=== PATIENT | male | born 1985 | race Caucasian/White ===

== ENCOUNTER 2023-10-30 03:55 | Inpatient (IN) | payer BC, SELFPAY ==
[2023-10-30] VITALS (23 sets, daily range): BP systolic 98–138; BP diastolic 63–104; PULSE 77–106; RESP 12–20; TEMP 36.5–37.3; O2SAT 91–100; BMI 23.6; BMI 23.3
--- NOTE | 2023-10-30 04:09 | HMH.EDGENADL ---
Discharge Plan Disposition Patient Disposition: Admitted Condition: Fair Clinical Impressions Clinical Impression: Myocarditis Discharge ED Provider: Jose Jose General Adult HPI General Chief complaint: Headache Stated complaint: heart racing, headache, sore throat Time Seen by Provider: 10/30/23 04:00 History of Present Illness HPI narrative: 38-year-old male with no significant past medical history is coming into the ED with complaints of viral symptoms. Patient has had for the past 2 days, he has been having progressively worsening body aches, headaches, sore throat, cough, congestion, fatigue. Patient notes that over the past 24 hours, he started feeling nauseous, decreased p.o. intake, started feel dehydrated. Patient notes that tonight, he started experiencing some flutters in his chest and mild chest pain and thus he decided come into the ED for evaluation. Related Data Home Medications Medication Instructions Recorded Confirmed aspirin 81 mg tablet 81 mg PO DAILY 10/30/23 10/30/23 cyclobenzaprine 10 mg tablet 10 mg PO Q8H PRN Pain 10/30/23 10/30/23 meloxicam 15 mg tablet 15 mg PO DAILY 10/30/23 10/30/23 Allergies Allergy/AdvReac Type Severity Reaction Status Date / Time No Known Allergies Allergy Verified 10/30/23 04:13 [facility] Disclaimer: The information contained in this section may have been updated after the patient was seen, as this information can be updated by other users. Medical History (Updated 10/30/23 @ 06:12 by Jose Jose MD) Chronic back pain Low testosterone in male Social History (Updated 10/30/23 @ 06:09 by LARISA Bird) Smoking Status: Never smoker alcohol intake: never current occupational status: employed Travel in the last 8 weeks: Inside the [employer] ROS Obtained: Yes All systems reviewed & no additional complaints except as documented Physical Exam General General appearance: alert and in no apparent distress Head Head exam: atraumatic, normocephalic and normal inspection Eye Eye exam: Present normal appearance, PERRL and EOMI; Absent scleral icterus or nystagmus ENT ENT exam: Present normal exam, mucous membranes moist and normal external ear exam Neck Neck exam: Present normal inspection, full ROM and trachea midline Chest Chest inspection: Present normal inspection and symmetric chest wall rise; Absent tenderness Respiratory Respiratory exam: Present normal lung sounds bilaterally; Absent respiratory distress, wheezes or accessory muscle use Cardiovascular Cardiovascular exam: Present regular rate, normal rhythm and normal heart sounds Abdominal Exam Abdominal exam: Present soft; Absent distention, tenderness, guarding, rebound, rigidity, trauma, ascites or pulsatile mass exam: Present deferred Extremities Exam Extremities exam: Present normal inspection and full ROM; Absent tenderness Back Exam Back exam: Present normal inspection and full ROM; Absent tenderness Neurological Exam Neurological exam: Present alert, oriented X3 and normal gait; Absent motor sensory deficit Psychiatric Psychiatric exam: Present normal affect and normal mood Skin Skin exam: Present warm, dry and normal color Medical Decision Making Medical Records Medical records reviewed: Yes I reviewed the patient's medical records. Alvaro Inquiry Pt receiving controlled substance: No Vital Signs: 10/30/23 03:56 10/30/23 04:30 10/30/23 05:00 Temperature 97.7 F Temperature Source Oral Pulse Rate 97 H 98 H Pulse Rate [Left Radial] 106 H Respiratory Rate 18 16 18 Blood Pressure 130/96 H 138/104 H Blood Pressure [Right Arm] 136/98 H Blood Pressure Mean 103 112 Blood Pressure Mean [Right Arm] 110 Blood Pressure Source Blood Pressure Source [Right Arm] Automatic Cuff Blood Pressure Position Blood Pressure Position [Right Arm] Sitting 02 Sat by Pulse Oximetry 98 98 98 Oxygen Delivery Method Room Air
--- NOTE | 2023-10-30 04:23 | ECG_ITS ---
APPROVED REPORT Exam: Resting ECG HR:89 bpm ECG Measurements Heart Rate 89 AXES [place] 136 P 61 QRSd 86 QRS 78 QT 325 T 37 QTc 372 Conclusion SINUS RHYTHM WITH SINUS ARRHYTHMIA EARLY REPOLARIZATION [ST ELEVATION WITH NORMALLY INFLECTED T-WAVE] BORDERLINE ECG INTERPRETATION BASED ON A DEFAULT AGE OF 38 YEARS UNCONFIRMED REPORT Electronically signed by : Tomas Simons MD 10/30/2023 14:43:26
[2023-10-30 04:30] LABS: Basophils # 0.1 K/mm3 (0-0.2); Basophils % 0.6 % (0.1-2.0); Eosinophils # 0.1 K/mm3 (0.0-0.4); Eosinophils % 0.8 % (0.1-12.0); Hematocrit 49.2 % (42.0-52.0); Hemoglobin 16.8 g/dL (14.1-18.0); Lymphocytes # 1.4 K/mm3 (0.7-4.5); Lymphocytes % 11.3 % (10-50); Mean Corpuscular HGB Conc 34.2 g/dL (31.8-35.4); Mean Corpuscular Volume 87.8 fl (80-94); Mean Platelet Volume 7.3 fl (7.4-10.4); Monocytes # 0.8 K/mm3 (0.1-1.0); Monocytes % 6.7 % (1.7-9.3); Neutrophils % 80.6 % (37.0-80.0); Platelet Count 277 K/mm3 (142-424); Red Cell Distribution Width 13.6 % (11.5-17.5); White Blood Count 12.5 K/mm3 (4.8-10.8)
[2023-10-30 04:32] LABS: Coronavirus 19, PCR Not Detected (NotDetected); Influenza A, PCR Not Detected (NotDetected); Influenza B, PCR Not Detected (NotDetected)
[2023-10-30 04:32] LABS: Chloride 99 mmol/L (98-107)
[2023-10-30 04:33] LABS: Potassium 4.2 mmoL/L (3.5-5.1)
[2023-10-30 04:35] LABS: Alanine Aminotransferase 50 U/L (12-78); Aspartate Amino Transferase 67 U/L (17-59); Blood Urea Nitrogen 25 mg/dl (9-20); Creatinine Clearance Estimated 84 mL/min (50-200); Estimated Glomerular Filt Rate 67 ml/min (>60); GFR (African American) 81 ML/MIN (>60)
[2023-10-30 04:36] LABS: Albumin Level 4.7 g/dl (3.5-5.0); Alkaline Phosphatase 87 U/L (38-126); Bilirubin,Total 0.8 mg/dl (0.2-1.3); Calcium 8.8 mg/dl (8.4-10.2); Carbon Dioxide 25 mmol/L (22.0-30.0); Glucose 107 mg/dl (74-100); Total Protein,Serum 7.9 g/dl (6.3-8.2)
[2023-10-30 04:39] LABS: Strep Scrn Group A (Rapid) Negative (Negative)
--- NOTE | 2023-10-30 05:01 | PC.NURSE ---
no on-call ent after [address] whitt states she doesn't feel comfortable taking a patient that there won't be ent coverage over the weekend for. oscar from [facility] states that on this basis, the local [facility]: mario nunez clark.
[2023-10-30 05:04] LABS: Troponin I 4.06 ng/ml (0.00-0.034)
--- NOTE | 2023-10-30 05:07 | ECG_ITS ---
APPROVED REPORT Exam: Resting ECG HR:86 bpm ECG Measurements Heart Rate 86 AXES [place] 142 P 66 QRSd 88 QRS 82 QT 335 T 42 QTc [address] ELEVATION, PROBABLY EARLY REPOLARIZATION [ST ELEVATION WITH NORMALLY INFLECTED T-WAVE] BORDERLINE ECG UNCONFIRMED REPORT Electronically signed by : Tomas Simons MD 10/30/2023 14:43:19
--- NOTE | 2023-10-30 05:08 | CT_ITS ---
FINAL REPORT TECHNIQUE: Postcontrast axial images of the chest were performed in a CTA protocol. This study was performed with techniques to keep radiation doses as low as reasonably achievable, (ALARA). Individualized dose reduction technique using automated exposure control or adjustment of mA and/or kV according to the patient's size were employed. CLINICAL HISTORY: incr trop FINDINGS: Soft tissue is seen in the anterior mediastinum likely related to residual thymic tissue. The heart is normal in size. No adenopathy is identified. No pleural or pericardial effusion is identified. The thoracic aorta is normal in caliber with no focal aneurysm or dissection identified. There is no filling defect to suggest pulmonary embolism. There is a nodule at the left lung base measuring 1.4 cm in diameter with central calcification likely due to partially calcified granuloma. Otherwise, no lung infiltrate or mass is identified. The images of the upper abdomen are unremarkable. IMPRESSION: No evidence for PE on this exam. Reviewed, Interpreted and Dictated by Jose Cabrera MD Transcribed by Hellen Daugherty Authenticated and [facility]
--- NOTE | 2023-10-30 05:14 | PC.NURSE ---
patient gone to CT at this time.
--- NOTE | 2023-10-30 05:18 | PC.NURSE ---
paged dr roberts, sent a copy of 2nd ekg via md phone to him
[2023-10-30 05:23] LABS: Creatine Kinase 283 U/L (55-170)
--- NOTE | 2023-10-30 05:26 | PC.NURSE ---
patient back in room at this time.
[2023-10-30 05:29] LABS: C-Reactive Protein 111.2 mg/L (0-4)
[2023-10-30 05:35] LABS: NT Pro Brain Natriuretic Pep. 1230 pg/mL (0-125)
[2023-10-30 05:39] LABS: Troponin I 6.73 ng/ml (0.00-0.034)
--- NOTE | 2023-10-30 05:42 | PC.NURSE ---
Patient to be admitted for possible myocarditis. Notified house grants administrator at this time of need for bed.
--- NOTE | 2023-10-30 05:49 | PC.NURSE ---
Observation admission to 202 with dx of myocarditis to service of hospitalist.
--- NOTE | 2023-10-30 05:54 | CA_ITS ---
APPROVED REPORT EXAM: Comprehensive 2D, Doppler, and color-flow Echocardiogram Recovery Room Rn: Najma Troy, RCS, RVS Ht: 5 ft 9 in Wt: 160lbs BSA: 1.88 BP: 124/84 mmHg Indications: S/P viral illness, fatigue,malaise, NSTEMI,Elevated troponin, abn ekg 2D Dimensions IVSd 1.05 cm LVEF (Visual) 40.00 % PWd 0.94 cm LA Volume 62.60 mL LVDd 5.04 cm LA Volume Index 33.30 mL/m2 (M/F) 16-34 LVDs 3.84 cm Left Atrium 3.33 cm M-Mode Dimensions RVDd 2.54 cm (0.9-2.6) LA Diam 3.52 cm (1.9-4.0) LVDd 4.47 cm (3.5-5.7) LVDs 3.11 cm (3.5-5.7) IVSd 1.18 cm (0.6-1.1) PWd 1.18 cm (0.6-1.1) EF (Teich) 48.00% EPSs 0.32 cm FS 30.40% EDV (Teich) 91.00 mL TAPSE 1.98 (<1.7) ESV (Teich) 38.20 mL LV Diastology E Decel Time 127 (160-240 msec) E/A Ratio 1.20 MED A' 11.40 cm/s LAT A' 11.60 cm/s Aortic Valve ANTONIO Index 1.23 cm2/m2 AoV Peak Elder. 88.0 (50-130 cm/s) AO Peak GR. 3.10 mmHg AO Mean GR. 1.50 (<5 mmHg) AO VTI 15.5 (18-25 cm) ANTONIO (VTI) 2.37 (2.5-4.5 cm2) Mitral Valve MV A Velocity 49.0 (40-130 cm/s) E/A Ratio 1.20 Tricuspid Valve TR P. Velocity 126.00 cm/s RAP Estimate 10.00 mmHg RVSP 16.30 mmHg Left Ventricle The left ventricle is normal size. Left ventricular systolic function is moderate to severely decreased. There is normal left ventricular wall thickness. There is moderate to severe global hypokinesis. There is severe hypokinesis of the mid to distal septal and and apical LV wall hypokinesis. Grade 1 diastolic dysfunction is present. LVEF is 30%. Right Ventricle The right ventricle is normal size. The right ventricular systolic function is normal. Atria The left atrium size is normal. The right atrium size is normal. There is no Doppler evidence of interatrial shunt. Aortic Valve The aortic valve opens well. The aortic valve is trileaflet. There is no aortic valvular stenosis. Trace aortic regurgitation. Mitral Valve The mitral valve is normal in structure. No evidence of mitral valve stenosis. Mild mitral regurgitation. Tricuspid Valve The tricuspid valve leaflets are thin and pliable. Mild tricuspid regurgitation. RVSP is normal. Pulmonic Valve The pulmonary valve is normal in structure. Trace pulmonic regurgitation. Great Vessels The aortic root is normal in size. The ascending aorta is normal in size. IVC is normal in size and collapses >50% with inspiration. Pericardium There is no pericardial effusion. Other Information Study Quality: Adequate Conclusion Moderate to severe reduction in LV systolic function (LVEF 30%). Severe hypokinesis of the mid to distal septal and and apical LV wall hypokinesis. No significant valvular stenosis or regurgitation. Due to the patient's presentation, elevated troponin, and reduced LVEF with regional wall motion abnormalities, the differential diagnosis includes coronary disease vs. myocarditis vs. stress cardiomyopathy. Electronically signed by : Shahida Stern MD 10/30/2023 10:02:54
--- NOTE | 2023-10-30 06:00 | EXP.HP ---
History of Present Illness *Admission Date: 10/30/23 *Reason for visit:: Malaise and fatigue *History of present illness: This is an otherwise healthy 38-year-old male with past medical history of supplemental testosterone usage and chronic low back pain who presents emergency department today with complaints of cough, congestion, malaise, fatigue and poor p.o. intake for approximately 1 week. He reports 2 weeks ago he developed sinus congestion and was taking [id number] medication for this and felt somewhat better. He reports over the last week he has had worsening symptoms of generalized malaise and fatigue, cough and congestion with fever. He endorses poor p.o. intake as well. Also states that he had some fluttering and twinges of pain in the center of his chest. He reports being COVID swab at urgent care center that was -2 days ago. He states that he has not been around anybody sick that he knows of but does state people at his work were wearing masks. He does not smoke, drinks socially and has no other medical history. Emergency department workup notable for elevated troponin of [address] elevation diffusely. He is also noted to have elevated BNP of 1200, CRP of 111, and CPK of 283. COVID swab, flu swab negative. He was noted to have a white blood cell count of 12.5. Given his elevated troponin, Dr. Edwards was consulted and recommends hospitalization with further investigation of elevated troponin. [facility] Disclaimer: The information contained in this section may have been updated after the patient was seen, as this information can be updated by other users. Medical History (Updated 10/30/23 @ 09:42 by ZEE Augustine) Chronic back pain Low testosterone in male Social History (Updated 10/30/23 @ 06:50 by Genesis Helm RN) Smoking Status: Never smoker alcohol intake: never current occupational status: employed Travel in the last 8 weeks: [place] the [place] Review of Systems Constitutional Constitutional: Reports as per HPI Eyes Eyes: Reports as per HPI ENT Ears, Nose, Mouth, and Throat: Reports as per HPI *Cardiovascular Cardiovascular: Reports as per HPI *Respiratory Respiratory: Reports system reviewed and no additional complaints, except as documented, Reports chest congestion and Reports cough *Gastrointestinal Gastrointestinal: Reports system reviewed and no additional complaints, except as documented *Genitourinary Genitourinary: Reports system reviewed and no additional complaints, except as documented *Musculoskeletal Musculoskeletal: Reports system reviewed and no additional complaints, except as documented Integumentary/Breasts Skin/Breast: Reports system reviewed and no additional complaints, except as documented *Neurologic Neurologic: Reports system reviewed and no additional complaints, except as documented Meds Home Medications and Allergies Home Medications Medication Instructions Recorded Confirmed Type anastrozole 1 mg tablet 1 mg PO DIRECTED Take with 10/30/23 10/30/23 History testosterone aspirin 81 mg tablet,delayed 81 mg PO DAILY Heart Health 10/30/23 10/30/23 History release cyclobenzaprine 10 mg tablet 10 mg PO Q8HP PRN Muscle Spasm 10/30/23 10/30/23 History ergocalciferol (vitamin D2) 1,250 1,250 mcg PO WEEKLY Supplement 10/30/23 10/30/23 History mcg (50,000 unit) capsule levocetirizine 5 mg tablet 5 mg PO DAILY Allergy Symptoms 10/30/23 10/30/23 History meloxicam 15 mg tablet 15 mg PO DAILY Pain 10/30/23 10/30/23 History testosterone cypionate 200 mg/mL 200 mg IM DIRECTED Hormone 10/30/23 10/30/23 History intramuscular oil Replacement New Prescriptions to Start Prescriptions: Allergies Allergy/AdvReac Type Severity Reaction Status Date / Time No Known Allergies Allergy Verified 10/30/23 04:13 Exam Data for Last 24 hours Vital signs and Labs for Last 24 Hours: Temp Pulse Resp BP Pulse Ox O2 Del Method 97.7 F
[2023-10-30 06:08] LABS: INR 1.15 (0.9-1.1); Prothrombin Time 12.3 seconds (10.1-12.5)
[2023-10-30 06:16] LABS: Anion Gap 14.2 mEq/L (5-15); Sodium 134 mmol/L (136-145)
--- NOTE | 2023-10-30 06:18 | PC.NURSE ---
REPORT CALLED AT 0605. PATIENT 38 YO MALE. DIAGNOSIS MYOCARDITIS.
[2023-10-30 06:20] LABS: Albumin/Globulin Ratio 1.5 (1.1-1.8); Globulin 3.2 g/dL (1.3-3.2)
[2023-10-30 06:28] LABS: PTT Heparin (inpatient only) 34.4 Seconds (23.6-34.0)
--- NOTE | 2023-10-30 06:31 | PC.NURSE ---
0620 PATIENT ARRIVED TO THE FLOOR VIA W/C AND ADMITTED TO ROOM 202.
--- NOTE | 2023-10-30 06:36 | PC.NURSE ---
pt arrived to floor via wheelchair @06:24
[2023-10-30 06:44] LABS: Ferritin 253 ng/ml (17.9-464)
--- NOTE | 2023-10-30 06:46 | PC.NURSE ---
ENDY ORTIZ PHARMACIST CONSULTED RE HEPARIN DRIP. TO START HEPARIN DRIP AT 850 UNITS/HR OR 17 ML/HR
[2023-10-30 06:51] LABS: Lactate Dehydrogenase 161 U/L (313-618)
[2023-10-30 06:54] LABS: Erythrocyte Sedimentation Rate 6 mm/hr (0-15)
[2023-10-30 07:09] LABS: Procalcitonin 0.278 ng/mL (0.0-2.0)
--- NOTE | 2023-10-30 07:40 | P.CONPHA_ITS ---
[facility] Pharmacy Heparin Dosing Demographic Data Admission date:: 10/30/23 Date: 10/30/23 Time: 07:40 Allergies Allergy/AdvReac Type Severity Reaction Status Date / Time No Known Allergies Allergy Verified 10/30/23 04:13 Height: 1.75 m Weight: 71.4 kg Indication Medication therapy:: Heparin Current Indications:: NSTEMI/ACS/MYOCARDITIS - LOW DOSE PROTOCOL Current Active Problems (Updated 10/30/23 @ 06:12 by Jose Jose MD) Myocarditis (Acute) Viral illness (Acute) NSTEMI (non-ST elevated myocardial infarction) (Acute) CVA?: No Bleeding problem?: No Kidney disease?: No ME?: No Additional History:: LOW TESTOSTERONE, LOW BACK PAIN Desired PTT range:: 50-75 seconds Labs Anticoagulation Lab Results:: 10/30/23 04:21 Hgb 16.8 Hct 49.2 Plt Count 277 Monitoring Dose Monitor 1: Date: 10/30/23 Time: 06:50 PTT Result:: BASELINE PTT: 34.4 SECONDS Infusion Rate:: STARTED HEPARIN DRIP AT 850 UNITS/HOUR = 17 ML/HOUR. Dose Monitor 2: Date: 10/30/23 Time: 13:00 Core Measures Most Recent Labs:: Laboratory Results - last 24 hr 10/30/23 04:21: WBC 12.5 H, RBC 5.60, Hgb 16.8, Hct 49.2, MCV 87.8, MCH 30.0, MCHC 34.2, RDW 13.6, Plt Count 277, MPV 7.3 L, Neut % (Auto) 80.6 H, Lymph % (Auto) 11.3, [place] % (Auto) 6.7, Eos % (Auto) 0.8, Baso % (Auto) 0.6, Neut # (Auto) 10.0 H, Lymph # (Auto) 1.4, [place] # (Auto) 0.8, Eos # (Auto) 0.1, Baso # (Auto) 0.1, ESR 6, PT 12.3, INR 1.15 H, APTT 34.4 H, Sodium 134 L, Potassium 4.2, Chloride 99, Carbon Dioxide 25, Anion Gap 14.2, BUN 25 H, Creatinine 1.20, Estimated Creat Clear 84, Estimated GFR 67, Est GFR ( Amer) 81, Glucose 107 H, Calcium 8.8, Total Bilirubin 0.8, AST 67 H, ALT 50, Alkaline Phosphatase 87, Troponin I 4.06 H, Total Protein 7.9, Albumin 4.7, Globulin 3.2, Albumin/Globulin Ratio 1.5 10/30/23 04:26: SARS-CoV-2 (PCR) Not detected, Influenza A Untype (PCR) Not detected, Influenza Type B (PCR) Not detected, Group A Strep Rapid Negative 10/30/23 05:11: Ferritin 253, Lactate Dehydrogenase 161 L, Total Creatine Kinase 283 H, Troponin I 6.73 H, C-Reactive Protein 111.2 H, NT-Pro-B Natriuret Pep 1230 H, Procalcitonin 0.278
--- NOTE | 2023-10-30 07:50 | HMH.PHAINT1 ---
Pharmacy Intervention Comments: MEDICATION RECONCILIATION COMPLETED ON PATIENT USING EXTERNAL FILL HISTORY FROM PHARMACY AND PATIENT INTERVIEW. -RADHA MC, LINDSAYD
--- NOTE | 2023-10-30 08:36 | PC.NURSE ---
Walked into room and heparin gtt wasn't running... notified charge, Greyson Rider and Canelo KOCH.
--- NOTE | 2023-10-30 09:22 | EXP.CARD.CON ---
History of Present Illness History of Present Illness Consult date: 10/30/23 Requesting physician: Simeon Rubi Consult reason: chest pain Chief complaint: elevated troponin, myocarditis Additional Medical History:: 1. Low testosterone A. Testosterone replacement 2. Chronic low back pain History of present illness: This is an otherwise healthy 38-year-old male with past medical history of supplemental testosterone usage and chronic low back pain who presents emergency department today with complaints of cough, congestion, malaise, fatigue and poor p.o. intake for approximately 1 week. He reports 2 weeks ago he developed sinus congestion and was taking vbzz-rgw-edwoxjz medication for this and felt somewhat better. He reports over the last week he has had worsening symptoms of generalized malaise and fatigue, cough and congestion with fever. He endorses poor p.o. intake as well. Also states that he had some fluttering and twinges of pain in the center of his chest. He reports being COVID swab at urgent care center that was -2 days ago. He states that he has not been around anybody sick that he knows of but does state people at his work were wearing masks. He does not smoke, drinks socially and has no other medical history. Emergency department workup notable for elevated troponin of [address] elevation diffusely. He is also noted to have elevated BNP of 1200, CRP of 111, and CPK of 283. COVID swab, flu swab negative. He was noted to have a white blood cell count of 12.5. Given his elevated troponin, Dr. Edwards was consulted and recommends hospitalization with further investigation of elevated troponin. The above per LARISA Bird Events noted above confirmed with patient. No complaints of chest pain. Non-smoker No history of DM, HTN or HLD FH pertinent for paternal GF with LA in his 50/60's Testosterone replacement every 10 days [address] shows mild ST segment elevation across the precordial leads. [facility] Disclaimer: The information contained in this section may have been updated after the patient was seen, as this information can be updated by other users. Medical History (Updated 10/30/23 @ 09:42 by ZEE Augustine) Chronic back pain Low testosterone in male Social History (Updated 10/30/23 @ 06:50 by Genesis Helm RN) Smoking Status: Never smoker alcohol intake: never current occupational status: employed Travel in the last 8 weeks: [place] Review of Systems Review of Systems Review of systems:: pertinent systems reviewed and negative unless documented below Constitutional Constitutional: Reports fatigue, Reports poor appetite, Reports lethargy and Reports malaise *Cardiovascular Cardiovascular: Denies chest pain *Neurologic Neurologic: Reports system reviewed and no additional complaints, except as documented Endocrine Endocrine: Reports fatigue Exam Data for Last 24 hours Vital signs and Labs for Last 24 Hours: Temp Pulse Resp BP Pulse Ox O2 Del Method 97.9 F 90 20 121/74 100 Room Air 10/30/23 08:00 10/30/23 08:00 10/30/23 08:00 10/30/23 08:00 10/30/23 08:00 10/30/23 08:49 Laboratory Results - last 24 hr 10/30/23 04:21: WBC 12.5 H, RBC 5.60, Hgb 16.8, Hct 49.2, MCV 87.8, MCH 30.0, MCHC 34.2, RDW 13.6, Plt Count 277, MPV 7.3 L, Neut % (Auto) 80.6 H, Lymph % (Auto) 11.3, [place] % (Auto) 6.7, Eos % (Auto) 0.8, Baso % (Auto) 0.6, Neut # (Auto) 10.0 H, Lymph # (Auto) 1.4, [place] # (Auto) 0.8, Eos # (Auto) 0.1, Baso # (Auto) 0.1, ESR 6, PT 12.3, INR 1.15 H, APTT 34.4 H, Sodium 134 L, Potassium 4.2, Chloride 99, Carbon Dioxide 25, Anion Gap 14.2, BUN 25 H, Creatinine 1.20, Estimated Creat Clear 84, Estimated GFR 67, Est GFR ( Amer) 81, Glucose 107 H, Calcium 8.8, Total Bilirubin 0.8, AST 67 H, ALT 50, Alkaline Phosphatase 87, Troponin I 4.06 H, Total Protein 7.9, Albumin 4.7, Globulin 3.2, Albumin/Globulin Ratio 1.5 10/30/23 04:26: SARS-CoV-2 (PCR)
--- NOTE | 2023-10-30 09:29 | PC.NURSE ---
courtesy tech note: pt rounded on. no verbalized needs at this time. call light w/in reach.
--- NOTE | 2023-10-30 10:05 | IR_ITS ---
APPROVED REPORT Patient Location: Inpatient Director Corporate Sales: JANIA Hernandez RT (R) PROCEDURES Selective coronary angiogram INDICATION New onset cardiomyopathy ejection fraction 30% abnormal echocardiogram, Regional wall motion abnormalities, Positive troponin along with ST elevation/myocardial infarction Informed consent was obtained prior to the procedure. COMPLICATIONS None Estimated Blood Loss: Less than 10 mls TECHNIQUE One percent lidocaine used to anesthetize the right anterior aspect of the wrist. The right radial artery was accessed via the Seldinger technique. A 6 Citizen Of [place] sheath was placed in the right radial artery. 2.5 mg of Verapamil, 800 mcg of nitroglycerin, 1mg Lidocaine and 5000 U Heparin were given through the arterial sheath. The papa catheter was also used to perform selective coronary angiography. At the end the procedure the apparatus was removed the sheath was removed and hemostasis achieved using TR banding patient was transferred to postop holding area in stable condition ANGIOGRAPHIC RESULTS The left main artery Normal The left anterior descending artery Normal The circumflex artery Normal The right coronary artery Dominant normal IMPRESSION Normal coronary arteries New onset cardiomyopathy PLAN 1. Standard therapy for systolic congestive heart failure 2. Consider LifeVest prior to discharge 3. Consider cardiac MRI 4. Further cardiac workup per primary team Electronically signed by : Phil Edwards MD 10/30/2023 10:49:37
--- NOTE | 2023-10-30 11:42 | MR_ITS ---
APPROVED REPORT Drop Count Associate: CLINICAL INDICATION Chest pain, elevated troponin, recent viral infection TECHNIQUE Image Acquisition: Cardiac magnetic resonance (CMR) was performed on Siemens Espree MRI 1.5T scanner. Software platform sequences were performed using the Siemens Branchly MR B19 platform. A set of three-plane, low-resolution, large dlpon-in-gqyk localizers were initially acquired. Then axial, coronal, sagittal TrueFISP, as well as axial HASTE images, were obtained. These were followed by gated TrueFISP breathold cinematic sequences obtained in the short axis with 8 mm slices and 2 mm gaps, 2-chamber (vertical long axis), 3-chamber, 4-chamber (horizontal long axis). A bolus of contrast was injected intravenously with first-pass sequences obtained in the short axis and four-chamber planes. After approximately 10 minutes, a TI juvenile detention officer sequence was performed to determine the optimal TI time. Using the optimized TI time, delayed contrast enhancement segmented inversion???recovery TurboFLASH sequences were obtained in the short axis, 2-chamber, 3-chamber, and 4-chamber projections. 2D-velocity phase mapping was performed. Functional parameters were calculated by offline analysis on an independent workstation ([employer] Platform, CVITelera). Contrast: ProHance??? (Gadoteridol) FINDINGS MORPHOLOGY AND FUNCTION Left ventricle: The left ventricle is normal in size. The indexed left ventricular end-diastolic volume (LVEDVi) is 96 ml/m2 (reference range 57-105 ml/m2 in males, 56-96 ml/m2 in females). There is mild reduction in left ventricular systolic function. There is normal left ventricular wall thickness. There is mild global hypokinesis present. The distal LV todd and the LV apical wall are moderately hypokinetic. LVEF is calculated at 41.0% (reference range 57-77%). Right ventricle: The right ventricle is normal in size. The indexed right ventricular end-diastolic volume (RVEDVi) is 94 ml/m2 (reference range 61-121 ml/m2 in males, 48-112 ml/m2 in females). There is mild reduction in right ventricular systolic function. RVEF is calculated at 44.4% (reference range 52-72% in males, 51-71% in females). Atria: The left atrium is normal in size. The maximum indexed left atrial volume is 32 ml/m2 (reference range 26-52 ml/m2 in males, 27-53 ml/m2 in females). The right atrium is normal in size. The maximum indexed right atrial volume is 23 ml/m2 (reference range 18-90 ml/m2). Aorta: The diameter of the aortic annulus is normal, measuring 27 mm (coronal view reference range 21-30 mm in males, 19-27 mm in females). The diameter of the aortic sinus is normal, measuring 31 mm (coronal view reference range 25-42 mm in males, 24-36 mm in females). The diameter of the sinotubular junction is normal, measuring 24 mm (coronal view reference range 18-32 mm in males, 18-28 mm in females). The diameters of the ascending and descending thoracic aorta are normal. Main pulmonary artery: The main pulmonary artery diameter is normal. Pericardium: The pericardial thickness is normal. The pericardial thickness measures 1.9 cm (normal < 4.0 cm). There is a trivial circumferential pericardial effusion present. VALVES The valvular morphologies in the visualized sequences appear normal. There is no significant valvular stenosis or regurgitation of the mitral, aortic, tricuspid, or pulmonic valve noted visually. Systolic anterior motion of the mitral valve is not visualized. Ratio of pulmonary to systemic flow, Qp:Qs ratio = 1.2 (normal < or = 1.2), demonstrating no evidence of hemodynamically significant shunt. TISSUE CHARACTERIZATION Resting Perfusion: Normal myocardial blood flow at rest. No evidence of resting hypoperfusion. Myocardial Fibrosis and/or lance
--- NOTE | 2023-10-30 11:53 | SUR.PHASEII ---
Patient to MRI at this time.
[2023-10-30 14:41] LABS: Troponin I 7.02 ng/ml (0.00-0.034)
--- NOTE | 2023-10-30 15:06 | PC.NURSE ---
R wrist band removed and no swelling or drainage noted.
--- NOTE | 2023-10-30 17:19 | PC.NURSE ---
Pt c/o headache this afternoon. Medicated per jan. VS currently stable. DSG to (R) radial is C/D/I. No hematoma noted. Call light within reach.
--- NOTE | 2023-10-30 21:09 | PC.WOUNDNOTE ---
Pt sat 95% on ra, pt states he feels a little soa and would like to continue wearing nc for comfort. Pt currently on 2 L nc sat 98%.
[2023-10-31] VITALS (10 sets, daily range): BP systolic 102–123; BP diastolic 54–77; PULSE 66–94; RESP 16–20; TEMP 36.5–36.8; O2SAT 95–100; BMI 23.3
--- NOTE | 2023-10-31 04:38 | PC.NURSE ---
Patient resting in bed with eyes closed. No c/o pain voiced to underwriter solicitation director, nor pain noted. Patient continues to request 2L of 02 d/t feeling SOB. 02 sat is reading in the mid 90's on room air. No chest pain voiced this far in shift. Dressing to Right Radial is C/D/I. Vital Signs stable.
[2023-10-31 07:10] LABS: Basophils # 0.1 K/mm3 (0-0.2); Basophils % 0.8 % (0.1-2.0); Eosinophils # 0.1 K/mm3 (0.0-0.4); Eosinophils % 1.5 % (0.1-12.0); Hematocrit 46.2 % (42.0-52.0); Hemoglobin 15.5 g/dL (14.1-18.0); Lymphocytes # 1.5 K/mm3 (0.7-4.5); Lymphocytes % 21.9 % (10-50); Mean Corpuscular HGB Conc 33.6 g/dL (31.8-35.4); Mean Corpuscular Hemoglobin 30.5 pg (27.0-31.2); Mean Platelet Volume 7.6 fl (7.4-10.4); Monocytes # 0.7 K/mm3 (0.1-1.0); Monocytes % 9.8 % (1.7-9.3); Neutrophils # 4.6 K/mm3 (1.8-7.8); Neutrophils % 66.1 % (37.0-80.0); Platelet Count 290 K/mm3 (142-424); Red Blood Count 5.07 M/mm3 (4.60-6.20); Red Cell Distribution Width 13.8 % (11.5-17.5)
[2023-10-31 07:34] LABS: Chloride 102 mmol/L (98-107); Potassium 4.6 mmoL/L (3.5-5.1); Sodium 136 mmol/L (136-145)
[2023-10-31 07:37] LABS: Alanine Aminotransferase 39 U/L (12-78); Albumin Level 3.6 g/dl (3.5-5.0); Albumin/Globulin Ratio 1.5 (1.1-1.8); Alkaline Phosphatase 80 U/L (38-126); Anion Gap 8.6 mEq/L (5-15); Aspartate Amino Transferase 62 U/L (17-59); Bilirubin,Total 0.5 mg/dl (0.2-1.3); Blood Urea Nitrogen 16 mg/dl (9-20); Calcium 8.4 mg/dl (8.4-10.2); Carbon Dioxide 30 mmol/L (22.0-30.0); Creatinine Clearance Estimated 100 mL/min (50-200); Estimated Glomerular Filt Rate 83 ml/min (>60); GFR (African American) 100 ML/MIN (>60); Globulin 2.4 g/dL (1.3-3.2); Glucose 108 mg/dl (74-100)
--- NOTE | 2023-10-31 10:08 | EXP.ACUTE.PN ---
Subjective *Date: 10/31/23 *Time: 10:10 Interval history: Patient is chest free today. Wearing oxygen morning rounds but this is more for his comfort than actual need. Room air sats have consistently been above 90. Denies any nausea or vomiting. Overall feeling better today. Medical Exam Vital signs and Labs for Last 24 Hours: Vital Signs Temp Pulse Pulse Resp BP Pulse Ox O2 Del Method 10/31/23 08:00 90 10/31/23 09:00 Nasal Cannula 10/31/23 08:00 Nasal Cannula 10/31/23 07:42 98.1 F 80 16 123/71 95 Nasal Cannula 10/31/23 04:00 98 F 78 16 110/58 L 98 Room Air 10/31/23 04:00 66 10/31/23 03:00 Nasal Cannula 10/31/23 01:00 Nasal Cannula 10/30/23 23:00 Nasal Cannula 10/31/23 00:00 98.3 F 94 H 18 108/65 L 100 Room Air 10/31/23 00:00 85 10/30/23 21:00 Nasal Cannula 10/30/23 20:00 98 F 106 H 16 118/73 96 10/30/23 20:00 98 Nasal Cannula 10/30/23 20:00 103 H 10/30/23 18:40 Room Air 10/30/23 18:10 98.7 F 92 H 16 112/72 97 Room Air 10/30/23 16:00 85 10/30/23 17:00 Room Air 10/30/23 17:09 86 16 122/78 95 Room Air 10/30/23 16:12 99.2 F 92 H 18 107/68 L 95 Room Air 10/30/23 15:06 98.4 F 77 18 117/66 96 Room Air 10/30/23 14:10 98.4 F 94 H 18 114/66 94 L Room Air 10/30/23 13:40 98.4 F 96 H 18 118/72 96 Room Air 10/30/23 13:52 Room Air 10/30/23 11:25 90 20 115/78 93 L Room Air 10/30/23 11:12 92 H 20 98/63 L 91 L Room Air 10/30/23 11:06 96 H 20 117/63 91 L Room Air 10/30/23 11:00 94 H 20 101/69 L 91 L Room Air 10/30/23 10:58 95 H 92 H 20 122/75 92 L Room Air O2 Flow Rate 10/31/23 08:00 10/31/23 09:00 1.5 10/31/23 08:00 2 10/31/23 07:42 1.5 10/31/23 04:00 10/31/23 04:00 10/31/23 03:00 2 10/31/23 01:00 2 10/30/23 23:00 2 10/31/23 00:00 10/31/23 00:00 10/30/23 21:00 2 10/30/23 20:00 10/30/23 20:00 2 10/30/23 20:00 10/30/23 18:40 10/30/23 18:10 10/30/23 16:00 10/30/23 17:00 10/30/23 17:09 10/30/23 16:12 10/30/23 15:06 10/30/23 14:10 10/30/23 13:40 10/30/23 13:52 10/30/23 11:25 10/30/23 11:12 10/30/23 11:06 10/30/23 11:00 10/30/23 10:58 Intake and Output 10/30/23 10/31/23 10/31/23 23:59 07:59 15:59 Intake Total 620 / 620 810 / 810 Output Total 0 / 0 Balance 620 / 620 810 / 810 Intake: Intake, Oral Amount 120 / 120 810 / 810 Intake, Total IV Amount 500 / 500 Lactated Ringers 1000ML 500 ml 500 / 500 @ 250 mls/hr IV .Q2H ONE Rx#: [id number] Output: Output, Urine Amount 0 / 0 Other: Weight 71.7 kg Patient Weight 10/31/23 23:59 Weight 71.7 kg Laboratory Results - last 24 hr 10/30/23 13:30: Troponin I 7.02 H 10/31/23 06:39: WBC 7.0 D, RBC 5.07, Hgb 15.5, Hct 46.2, MCV 91.0, MCH 30.5, MCHC 33.6, RDW 13.8, Plt Count 290, MPV 7.6, Neut % (Auto) 66.1, Lymph % (Auto) 21.9, [place] % (Auto) 9.8 H, Eos % (Auto) 1.5, Baso % (Auto) 0.8, Neut # (Auto) 4.6, Lymph # (Auto) 1.5, [place] # (Auto) 0.7, Eos # (Auto) 0.1, Baso # (Auto) 0.1, Sodium 136, Potassium 4.6, Chloride 102, Carbon Dioxide 30, Anion Gap 8.6, BUN 16 D, Creatinine 1.00, Estimated Creat Clear 100, Estimated GFR 83, Est GFR ( Amer) 100 D, Glucose 108 H, Calcium 8.4, Magnesium 2.0, Total Bilirubin 0.5, AST 62 H, ALT 39, Alkaline Phosphatase 80, Total Protein 6.0 L, Albumin 3.6 D, Globulin 2.4, Albumin/Globulin Ratio 1.5 I & O for Labs for Last 24 Hours: Intake & Output 10/28/23 10/29/23 10/30/23 10/31/23 23:59 23:59 23:59 23:59 Intake Total 620 / 620 810 / 810 Output Total 0 / 0 Balance 620 / 620 810 / 810 Weight 71.4 kg 71.7 kg Constitutional: Present no acute distress and average body habitus Head: Present atraumatic and normocephalic ENT: Present normal exam Respiratory: Present CTA bilaterally and normal respiratory effor
--- NOTE | 2023-10-31 11:40 | PC.NURSE ---
Courtesy Claire Rounded on patient . Patient is awake and sitting up in bed. Patient voiced no needs at this time. Call carrion within reach.
--- NOTE | 2023-10-31 15:37 | PC.NURSE ---
MEDICATED FOR HEADACHE X2 THIS SHIFT WITH PRN TYLENOL BUT OTHERWISE DENIES PAIN. NSR ON TELE. AMBULATING IN ROOM WITHOUT DIFFICULTY. 1.[address] PER PATIENT REQUEST.
[2023-11-01] VITALS: PULSE 76
[2023-11-01 04:00] VITALS: BP 115/62; PULSE 71; PULSE 75; RESP 18; TEMP 36.9; O2SAT 96; BMI 23.1
[2023-11-01 07:35] VITALS: BP 125/72; PULSE 80; RESP 18; TEMP 37.2; O2SAT 97
[2023-11-01 07:58] LABS: Chloride 102 mmol/L (98-107)
[2023-11-01 07:59] LABS: Potassium 4.3 mmoL/L (3.5-5.1); Sodium 136 mmol/L (136-145)
[2023-11-01 08:00] VITALS: PULSE 70
[2023-11-01 08:01] LABS: Alanine Aminotransferase 41 U/L (12-78); Albumin Level 3.9 g/dl (3.5-5.0); Alkaline Phosphatase 75 U/L (38-126); Aspartate Amino Transferase 56 U/L (17-59); Bilirubin,Total 0.7 mg/dl (0.2-1.3); Blood Urea Nitrogen 17 mg/dl (9-20); Creatinine Clearance Estimated 123 mL/min (50-200); Estimated Glomerular Filt Rate 107 ml/min (>60); GFR (African American) 130 ML/MIN (>60)
[2023-11-01 08:02] LABS: Albumin/Globulin Ratio 1.3 (1.1-1.8); Anion Gap 12.3 mEq/L (5-15); Calcium 8.5 mg/dl (8.4-10.2); Carbon Dioxide 26 mmol/L (22.0-30.0); Globulin 2.9 g/dL (1.3-3.2); Glucose 92 mg/dl (74-100); Total Protein,Serum 6.8 g/dl (6.3-8.2)
[2023-11-01 08:07] LABS: C-Reactive Protein 48.7 mg/L (0-4)
[2023-11-01 08:09] LABS: Basophils % 0.5 % (0.1-2.0); Eosinophils # 0.1 K/mm3 (0.0-0.4); Eosinophils % 1.7 % (0.1-12.0); Hemoglobin 15.6 g/dL (14.1-18.0); Lymphocytes # 1.9 K/mm3 (0.7-4.5); Lymphocytes % 23.7 % (10-50); Mean Corpuscular HGB Conc 33.9 g/dL (31.8-35.4); Mean Corpuscular Hemoglobin 30.3 pg (27.0-31.2); Mean Corpuscular Volume 89.3 fl (80-94); Mean Platelet Volume 7.5 fl (7.4-10.4); Monocytes # 0.8 K/mm3 (0.1-1.0); Monocytes % 10.3 % (1.7-9.3); Neutrophils % 63.7 % (37.0-80.0); Platelet Count 316 K/mm3 (142-424); Red Blood Count 5.15 M/mm3 (4.60-6.20); Red Cell Distribution Width 13.7 % (11.5-17.5); White Blood Count 7.8 K/mm3 (4.8-10.8)
[2023-11-01 08:15] LABS: Troponin I 1.97 ng/ml (0.00-0.034)
[2023-11-01 08:22] LABS: Magnesium 1.9 mg/dl (1.6-2.3)
--- NOTE | 2023-11-01 09:10 | EXP.DC.SUM ---
General Admission date:: 10/30/23 Discharge date: 11/01/23 HPI HPI HPI: This is an otherwise healthy 38-year-old male with past medical history of supplemental testosterone usage and chronic low back pain who presents emergency department today with complaints of cough, congestion, malaise, fatigue and poor p.o. intake for approximately 1 week. He reports 2 weeks ago he developed sinus congestion and was taking [id number] medication for this and felt somewhat better. He reports over the last week he has had worsening symptoms of generalized malaise and fatigue, cough and congestion with fever. He endorses poor p.o. intake as well. Also states that he had some fluttering and twinges of pain in the center of his chest. He reports being COVID swab at urgent care center that was -2 days ago. He states that he has not been around anybody sick that he knows of but does state people at his work were wearing masks. He does not smoke, drinks socially and has no other medical history. Emergency department workup notable for elevated troponin of [address] elevation diffusely. He is also noted to have elevated BNP of 1200, CRP of 111, and CPK of 283. COVID swab, flu swab negative. He was noted to have a white blood cell count of 12.5. Given his elevated troponin, Dr. Edwards was consulted and recommends hospitalization with further investigation of elevated troponin. Hospital Course Hospital Course Hospital Course: 38-year-old male admitted for chest pain and elevated troponins. Cardiology consulted. MRI confirms myocarditis. Taken for left heart cath with normal coronaries. Monitored for 48 hours, showing improvement in symptoms. Stable heart rate on telemetry. No significant ectopy. Meeting criteria for discharge home with close follow-up with cardiology. Tolerating goal-directed therapy. Problems addressed as follows: NSTEMI Myocarditis Presented with chest pain and weakness. Found to have elevated troponin. Was admitted to medicine for further management. Cardiology was consulted. Troponin peaked at 10.3, improved to 1.9 by day of discharge. Chest pain gradually improved during admission. CRP elevated at 111, improved to 48 by day of discharge. Cardiology workup included left heart cath given reduced ejection fraction with regional wall motion abnormalities on echo. EF 40%. Left heart cath showed normal coronaries. Cardiac MRI was obtained confirming myocarditis. Patient was started on goal-directed therapy including low-dose carvedilol, Entresto, Jardiance, spironolactone. Continue daily aspirin stable for discharge home with follow-up with cardiology. Patient clinically improving.. Low testosterone -Reports has been taking supplementation for over 10 years. Holding testosterone and anastrozole during admission. Recommend holding until heart function improves. Exam Data for Last 24 hours Vital signs and Labs for Last 24 Hours: Temp Pulse Resp BP Pulse Ox O2 Del Method O2 Flow Rate 98.9 F 70 18 125/72 97 Nasal Cannula 1.5 11/01/23 07:35 11/01/23 08:00 11/01/23 07:35 11/01/23 07:35 11/01/23 07:35 11/01/23 07:35 10/31/23 18:40 Laboratory Results - last 24 hr 11/01/23 06:18: WBC 7.8, RBC 5.15, Hgb 15.6, Hct 46.0, MCV 89.3, MCH 30.3, MCHC 33.9, RDW 13.7, Plt Count 316, MPV 7.5, Neut % (Auto) 63.7, Lymph % (Auto) 23.7, [place] % (Auto) 10.3 H, Eos % (Auto) 1.7, Baso % (Auto) 0.5, Neut # (Auto) 5.0, Lymph # (Auto) 1.9, [place] # (Auto) 0.8, Eos # (Auto) 0.1, Baso # (Auto) 0.0, Sodium 136, Potassium 4.3, Chloride 102, Carbon Dioxide 26, Anion Gap 12.3, BUN 17, Creatinine 0.80, Estimated Creat Clear 123, Estimated GFR 107, Est GFR ( Amer) 130 D, Glucose 92, Calcium 8.5, Magnesium 1.9, Total Bilirubin 0.7, AST 56, ALT 41, Alkaline Phosphatase 75, Troponin I 1.97 H, C-Reactive Protein 48.7 H D, Total Protein 6.8, Albumin 3.9, Globulin 2.9, Albumin/Globulin Ratio 1.3 I & O for Last 24 hours: I
[2023-11-01 12:00] VITALS: PULSE 80
--- NOTE | 2023-11-02 15:50 | CARE MANAGER ---
Called and spoke with patient regarding recent discharge. Patient states that he is doing ok, just tired. He is aware of f/u appts. He was able to get his medications with the exception of Jardiance which we will work on getting PA for today.
== END 2023-11-01 12:44 | disposition home or self-care (01) | DRG 281 ==
LOC: ER 04:40 → 2ND 06:12
PROVIDERS: Internal Medicine; Nurse Practitioner Acute Care; Admitting Provider Internal Medicine Adolescent Medicine; Emergency Provider Emergency Medicine; PCP Internal Medicine; Visit Provider Internal Medicine Adolescent Medicine
DX: I21.4 Non-ST elevation (NSTEMI) myocardial infarction (principal); I42.9 Cardiomyopathy, unspecified; I51.4 Myocarditis, unspecified; G89.29 Other chronic pain; M54.9 Dorsalgia, unspecified; B34.9 Viral infection, unspecified
CPT/HCPCS: 36415; 71275; 75561; 80053; 82550; 82728; 83615; 83735; 83880; 84145; 84484; 85025; 85610; 85651; 85730; 86140; 87430; 87636; 93005; 93306; 93454; 99152; 99285; A9576; C1725; C1760; C1769; J1644; J2405; Q9967

== ENCOUNTER → 2023-11-12 14:31 | Outpatient (CLI) | payer BC, SELFPAY ==
[2023-11-12 14:58] LABS: Basophils # 0.1 K/mm3 (0-0.2); Basophils % 1.1 % (0.1-2.0); Eosinophils # 0.1 K/mm3 (0.0-0.4); Eosinophils % 1.7 % (0.1-12.0); Hematocrit 46.2 % (42.0-52.0); Hemoglobin 15.5 g/dL (14.1-18.0); Lymphocytes # 2.2 K/mm3 (0.7-4.5); Lymphocytes % 28.7 % (10-50); Mean Corpuscular HGB Conc 33.5 g/dL (31.8-35.4); Mean Corpuscular Hemoglobin 30.2 pg (27.0-31.2); Mean Platelet Volume 7.9 fl (7.4-10.4); Monocytes # 0.5 K/mm3 (0.1-1.0); Monocytes % 6.1 % (1.7-9.3); Neutrophils # 4.8 K/mm3 (1.8-7.8); Neutrophils % 62.4 % (37.0-80.0); Platelet Count 321 K/mm3 (142-424); Red Blood Count 5.13 M/mm3 (4.60-6.20); Red Cell Distribution Width 13.5 % (11.5-17.5); White Blood Count 7.7 K/mm3 (4.8-10.8)
[2023-11-12 15:25] LABS: Alanine Aminotransferase 77 U/L (12-78); Albumin Level 4.5 g/dl (3.5-5.0); Alkaline Phosphatase 61 U/L (38-126); Anion Gap 8.3 mEq/L (5-15); Aspartate Amino Transferase 40 U/L (17-59); Bilirubin,Direct 0.1 mg/dl (0.0-0.4); Bilirubin,Indirect 0.5 mg/dL (0.0-0.9); Bilirubin,Total 0.6 mg/dl (0.2-1.3); Bilirubin,Unconjugated 0.5 mg/dL (0.0-1.1); Blood Urea Nitrogen 20 mg/dl (9-20); Calcium 9.2 mg/dl (8.4-10.2); Carbon Dioxide 31 mmol/L (22.0-30.0); Chloride 102 mmol/L (98-107); Chol/HDL Ratio 5.2 (1-3.5); Cholesterol 187 mg/dl (140-200); Estimated Glomerular Filt Rate 93 ml/min (>60); GFR (African American) 113 ML/MIN (>60); Glucose 111 mg/dl (74-100); HDL Cholesterol 36 mg/dl (40-60); Magnesium 1.9 mg/dl (1.6-2.3); Potassium 4.3 mmoL/L (3.5-5.1); Sodium 137 mmol/L (136-145); Triglycerides 151 mg/dl (30-150); VLDL Cholesterol 30 mg/dL (0-40)
[2023-11-12 15:36] LABS: Direct LDL Cholesterol 109.91 mg/dL (100-129)
[2023-11-12 15:41] LABS: Free T4 (Free Thyroxine) 0.83 ng/dl (0.78-2.19)
[2023-11-12 15:57] LABS: Thyroid Stimulating Hormone 1.81 uIU/mL (0.465-4.68)
== END ==
LOC: LAB 14:33
PROVIDERS: Visit Provider Physician Assistant
DX: I51.4 Myocarditis, unspecified (principal)
CPT/HCPCS: 36415; 80048; 80061; 80076; 83735; 84439; 84443; 85025

== ENCOUNTER 2023-12-07 10:42 | Outpatient (CLI) | payer BC, SELFPAY ==
--- NOTE | 2023-12-07 10:47 | CA_ITS ---
APPROVED REPORT EXAM: Limited 2D Echocardiogram Hogshead Roller: Susi De Jesus CRT Ht: 5 ft 8 in Wt: 153lbs BSA: 1.82 BP: 108/70 mmHg Indications: EF CHECK 30% ON Echo 10/30/23, M-Mode Dimensions RVDd 2.56 cm (0.9-2.6) LVDd 4.94 cm (3.5-5.7) LVDs 3.57 cm (3.5-5.7) IVSd 1.08 cm (0.6-1.1) PWd 0.64 cm (0.6-1.1) EF (Teich) 53.70% FS 27.70% EDV (Teich) 115.00 mL ESV (Teich) 53.30 mL Other Information Study Quality: Adequate Conclusion This is a limited TTE to evaluate for LVEF. Limited windows were obtained. The left ventricle is normal in size. There is normal LV wall thickness. There are no regional wall motion abnormalities noted. There is low normal LV systolic function. LVEF is 50%. Compared to prior study from 10/2023, the LV systolic function is recovered. Electronically signed by : Shahida Stern MD 12/07/2023 11:34:40
== END 2023-12-07 23:59 ==
LOC: RT 10:44
PROVIDERS: PCP Internal Medicine; Visit Provider Physician Assistant
DX: I51.4 Myocarditis, unspecified (principal); I31.9 Disease of pericardium, unspecified
CPT/HCPCS: 93308

== ENCOUNTER 2024-12-05 10:25 | Outpatient (CLI) | payer BC, SELFPAY ==
[2024-12-05 10:54] LABS: Basophils % 0.9 % (0.1-2.0); Eosinophils # 0.1 K/mm3 (0.0-0.4); Eosinophils % 2.7 % (0.1-12.0); Hematocrit 46.6 % (42.0-52.0); Hemoglobin 15.2 g/dL (14.1-18.0); Lymphocytes # 1.4 K/mm3 (0.7-4.5); Lymphocytes % 32.5 % (10-50); Mean Corpuscular HGB Conc 32.6 g/dL (31.8-35.4); Mean Corpuscular Hemoglobin 28.8 pg (27.0-31.2); Mean Corpuscular Volume 88.4 fl (80-94); Mean Platelet Volume 9.1 fl (7.4-10.4); Monocytes # 0.4 K/mm3 (0.1-1.0); Monocytes % 9.1 % (1.7-9.3); Neutrophils # 2.4 K/mm3 (1.8-7.8); Neutrophils % 54.6 % (37.0-80.0); Platelet Count 228 K/mm3 (142-424); Red Blood Count 5.27 M/mm3 (4.60-6.20); Red Cell Distribution Width 13.5 % (11.5-17.5); White Blood Count 4.4 K/mm3 (4.8-10.8)
[2024-12-05 11:18] LABS: Albumin Level 4.6 g/dl (3.5-5.0); Chloride 104 mmol/L (98-107); Sodium 143 mmol/L (136-145)
[2024-12-05 11:19] LABS: Potassium 4.5 mmoL/L (3.5-5.1)
[2024-12-05 11:21] LABS: Alanine Aminotransferase 23 U/L (12-78); Alkaline Phosphatase 67 U/L (38-126); Anion Gap 14.5 mEq/L (5-15); Aspartate Amino Transferase 34 U/L (17-59); Bilirubin,Direct 0.1 mg/dl (0.0-0.4); Bilirubin,Indirect 0.6 mg/dL (0.0-0.9); Bilirubin,Total 0.7 mg/dl (0.2-1.3); Bilirubin,Unconjugated 0.5 mg/dL (0.0-1.1); Blood Urea Nitrogen 19 mg/dl (9-20); Calcium 9.8 mg/dl (8.4-10.2); Carbon Dioxide 29 mmol/L (22.0-30.0); Cholesterol 176 mg/dl (140-200); Estimated Glomerular Filt Rate 107 ml/min (>60); GFR (African American) 129 ML/MIN (>60); Glucose 76 mg/dl (74-100); Total Protein,Serum 6.8 g/dl (6.3-8.2); Triglycerides 159 mg/dl (30-150); VLDL Cholesterol 32 mg/dL (0-40)
[2024-12-05 11:22] LABS: Chol/HDL Ratio 4.5 (1-3.5); HDL Cholesterol 39 mg/dl (40-60)
[2024-12-05 11:32] LABS: Direct LDL Cholesterol 93.14 mg/dL (100-129)
== END 2024-12-05 23:59 | disposition home or self-care (01) ==
LOC: LAB 10:26
PROVIDERS: PCP Internal Medicine; Visit Provider Nurse Practitioner
DX: I31.9 Disease of pericardium, unspecified (principal); I40.9 Acute myocarditis, unspecified; E78.5 Hyperlipidemia, unspecified; I10 Essential (primary) hypertension
CPT/HCPCS: 36415; 80048; 80061; 80076; 85025

== ENCOUNTER 2025-11-13 10:21 | Outpatient (CLI) | payer BC, SELFPAY ==
--- OUTSIDE RECORDS SUMMARY | 2025-11-13 10:36 | XMS_ITS | Clinical Summary ---
Author Organization [facility] Address [address] [place] [id number] Phone [email or web address] Care Team Providers Care High School Sports Coach Name Role Phone Mitchell Merino Primary Care Provider [phone] Allergies Active Allergy Reactions Criticality Noted Date Comments Molds & Smuts Cough 01/21/2019 Other Cough 01/21/2019 Cockroach family Pollen Extract 01/21/2019 Medications anastrozole (ARIMIDEX) 1 MG chemo tablet Take 1 mg by mouth per week. Active testosterone cypionate (DEPO-TESTOTER ONE) 200 MG/ML injection Inject 200 mg as directed every 14 (fourteen) days. Active ergocalciferol (VITAMIN D-2) 54992 units capsule Take 50,000 Units by mouth 1 (one) time per week. Active aspirin 81 MG tablet Take 81 mg by mouth 1 (one) time each day. Active EPINEPHrine (EPIPEN 2-PHILL) 0.3 MG/0.3ML injection syringe EpiPen 2-Phill 0.3 mg/0.3 mL injection, auto-injector Active levocetirizine (XYZAL) 5 MG tablet 8 Active azelastine (ASTELIN) 0.1 % nasal spray 8 Active omeprazole (PriLOSEC) [address] capsule 9 Active betamethasone valerate (VALISONE) 0.1 % cream betamethasone valerate 0.1 % topical cream APPLY A THIN LAYER TO AFFECTED AREA(S) TOPICALLY DAILY Active Jardiance 10 MG tablet Take 1 tablet by mouth. Active sacubitril-adrienne sartan (Entresto) 24-26 MG per tablet 1 tablet. 3 Active meloxicam (MOBIC) 15 MG tablet Take 15 mg by mouth 1 (one) time each day. 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 Resolved Problems Problem Noted Date Diagnosed Date Resolved Date Perennial allergic rhinitis 12/20/2018 12/20/2018 Allergy to pollen 12/20/2018 12/27/2019 Right foot pain 07/05/2018 09/22/2018 Allergic rhinitis due to pollen 05/26/2017 09/22/2018 Overview (04/14/2018): Need for desensitization to allergens 01/06/2017 12/20/2018 Overview (04/14/2018): Hypertrophy of nasal turbinates 07/30/2016 12/20/2018 Allergic rhinitis 07/25/2016 09/22/2018 Chronic rhinitis 07/25/2016 12/20/2018 Sinusitis 07/25/2016 09/22/2018 Sprain of wrist 12/30/2010 09/22/2018 Overview (04/14/2018): Hordeolum externum 09/24/2010 8 Overview (04/14/2018): Other and unspecified superf icial injuries of eye 09/23/2010 09/22/2018 Overview (04/14/2018): Need for prophylactic vaccin ation with tetanus-diphtheria (Td) 09/23/2010 09/22/2018 Overview (04/14/2018): Neck sprain and strain 05/15/200809/22 Overview (04/14/2018): Encounters Date Type Department Care Team Description [facility]2025 [facility] [address] [place] [address] Gopal Skaggs 09/13/2025 Telephone [facility] [address] [place] [address] Alethea Maria OT 08/28/2025 Documentation [facility] [address] [place] [address] Ivette Batista PA from Last 3 Months Immunizations Immunization Administration Dates Next Due Tdap (ADACEL BOOSTRIX) ([id number]) 09/16/2019,07/2010 Social History Tobacco Use Types Packs/Day Years Used Date Smoking Tobacco: Never Smokeless Tobacco: Never Tobacco Cessation:Counseling Given: Not Answered Alcohol Use Standard Drinks/Week Comments No 0 (1 standard drink = 0.6 oz pur e alcohol) Intimate Partner Violence Answer Date R ecorded Insults You Not on file 02/26/2021 Threatens You Not on file 02/26/2021 Screams at You Not on file 02/26/2021 Physically Hurt Not on file 02/26/2021 Intimate Partner Violence Score Not on file 02/26/2021 Alcohol Use Answer Date Recorded Alcohol Use Status No 07/10/2025 Depression Answer Date Recorded PHQ Total Score 0 07/10/2025 Stress Answer Date Recorded Stress in your Life Not on file 09/18/2024 Dealing with Stress 3 09/18/2024 Sex and Gender Information Value Date Recorded Sex Assigned at Male 11/20/2023 1:02 PM FOREST RESOURCE SPECIALIST Legal Sex Male 7:28 AM CDT Gender Identity Male 11/20/2023 1:02 PM FOREST RESOURCE SPECIALIST Sexual Orientation Not on file Last Filed Vital Signs Vital Sign Reading Time Taken Comments Blood Pressure 123/82 09/27/2025 11:28 AM EST Pulse 62 09/27/2025 11:28 AM EST Temperature 36.2 C (97.2 F) 11/20/2023 2:59 PM EST Respiratory Rate 16 09/11/2025 9:05 AM EDT Oxygen Saturation 98% 09/11/2025 9:05 AM EDT Inhaled Oxygen Concentration - - Weight 73.9 kg (163 lb) 07/10/2025 7:59 AM EDT Height 172.7 cm (5' 8 ) 07/10/2025 7:59 AM EDT Body Mass Index 24.78 07/10/2025 7:59 AM EDT Plan of Treatment Health Maintenance Due Date Last Done Comments Dental Cleaning/Exam 1985 HIV Screening 1985 Hepatitis C Screening 1983 HPV Immunization (1 - Male 3-dose series) 1998 Annual Preventive Exam 2001 Hep B Infection Screening - Triple Screen 2001 Hepatitis B Immunization (1 of 3 - 19+ 3-dose series) 2002 Covid-19 Immunization (1 - season) 2025 Influenza Immunization (#1) 2025 Tetanus Diphtheria and Pertussis Immunization (3 - Td or Tdap) 09/16/2029 09/16/2019, 09/24/2010 HIB Immunization Aged Out No longer e ligible based on patient's age to complete this topic Hepatitis A Immunization Aged Out No longer eligible based on patient's age to complete this topic Pneumococcal Immunization Aged Out No longer eligible based on patient's age to complete this topic Polio Immunization Aged Out No longer eligible based on patient's age to complete this topic Varicella Immunization Aged Out No lo nger eligible based on patient's age to complete this topic Insurance [place] [address] [facility] [id number] [place] [address] Care Teams High School Sports Coach Relationship Specialty Start Date End Date Mitchell Merino [address] [place] [address] PCP - General Family Medicine 10/03/19
--- OUTSIDE RECORDS SUMMARY | 2025-11-13 10:37 | XMS_ITS | Clinical Summary ---
Author Organization [facility] Address [address] [place] [address] Care Team Providers Care Felt Pad Cutter Name Role Phone Provider, No Known Primary Care Provider [phone] Allergies Active Allergy Reactions Criticality Noted Date Comments Molds & Smuts Cough 01/21/2019 Other Cough 01/21/2019 Cockroach family Pollen Extract Cough 01/21/2019 Medications meloxicam (MOBIC) 15 MG tablet Take 1 tablet by mouth Daily. 10/05/20 Active Aspirin 81 MG capsule Take 81 mg by mouth. Active vitamin D (ERGOCALCIFERO L) 1.25 MG (59549 UT) capsule capsule Take 1 capsule by mouth 1 (One) Time Per Week. Active EPINEPHrine (EPIPEN) 0.3 MG/0.3ML solution auto-injector injection EpiPen 2-Phill 0.3 mg/0.3 mL injection, auto-injector Active cyclobenzaprin e (FLEXERIL) 10 MG tablet Take 1 tablet by mouth Every 8 (Eight) Hours As Needed. for pain 10/05/20 Active betamethasone valerate (VALISONE) 0.1 % cream betamethasone valerate 0.1 % topical cream APPLY A THIN LAYER TO AFFECTED AREA(S) TOPICALLY DAILY Active Aspirin (BUFFERIN LOW DOSE PO) Take 81 mg by mouth. Active anastrozole (ARIMIDEX) 1 MG tablet Take 1 tablet by mouth 1 (One) Time Per Week. Active methocarbamol (ROBAXIN) 500 MG tablet Take 1 tablet by mouth 3 (Three) Times a Day As Needed. 09/22/20 Active BD Disp Tabiona 18G X 1-1/2 misc USE DIRECTED ONCE A WEEK 09/16/20 Active Luer Lock Safety Syringes 23G X 1 3 ML misc USE DIRECTED TO INJECT TESTOSTERONE WEEKLY 09/16/20 Active Testosterone Cypionate (DEPOTESTOTERO NE CYPIONATE) 200 MG/ML injection INJECT 1 ML INTRAMUSCULARLY ONCE A WEEK Active triamcinolone (KENALOG) 0.1 % cream triamcinolone acetonide 0.1 % topical cream APPLY CREAM EXTERNALLY TO AFFECTED AREA THREE TIMES DAILY FOR 7 DAYS Active Social History Tobacco Use Types Packs/Day Years Used Date Smoking Tobacco: Never Smokeless Tobacco: Never Tobacco Cessation:Counseling Given: Not Answered Abuse Screen Answer Date Recorded Unsafe at Home or Work/School Not on file Feels Threatened by Someone? Not on file Does Anyone Keep You from Co ntacting Others or Doint Things Outside the Home? Not on file 10/28/2023 Physical Sign of Abuse Present Not on file 1 12/29/2022 Housing Stability Answer Date Recorded Current Living Arrangements Not on file 10/16 Potentially Unsafe Housing Conditions Not on héctor e 10/28/2023 Family and Community Support Answer Ayan e Recorded Help with Day-to-Day Activities Not on file 10/28/2023 Lonely or Isolated Not on file 10/28/2023 Employment Answer Date Recorded Do you want help finding or keeping work or a nathan b? Not on file 10/28/2023 Disabilities Answer Date Recorded Concentrating, Remembering, or Making Decisions Difficulty Not on file 10/28/2023 Doing Errands Independently Difficulty Not on fi le 10/28/2023 Education Answer Date Recorded Help with school or training? Not on file Preferred Language Not on file 10/28/2023 Sex and Gender Information Value Date Recorded Sex Assigned at Not on file Legal Sex Male 6:11 PM EST Gender Identity Not on file Sexual Orientation Not on file Last Filed Vital Signs Vital Sign Reading Time Taken Comments Blood Pressure 141/86 10/28/2023 6:22 PM EST Pulse 125 10/28/2023 6:22 PM EST Temperature 37.6 C (99.7 F) 10/28/2023 6:22 PM EST Respiratory Rate 20 10/28/2023 6:22 PM EST Oxygen Saturation 95% 10/28/2023 6:22 PM EST Inhaled Oxygen Concentration - - Weight 72.6 kg (160 lb) 10/28/2023 6:18 PM EST Height 175.3 cm (5' 9 ) 10/28/2023 6:18 PM EST Body Mass Index 23.63 10/28/2023 6:18 PM EST Plan of Treatment Health Maintenance Due Date Last Done Comments ANNUAL PHYSICAL 1985 HEPATITIS C SCREENING 1983 INFLUENZA VACCINE 06/16/2025 TDAP/TD VACCINES (3 - Td or Tdap) 09/16/2029 09/16/2019, 09/24/2010 Pneumococcal Vaccine 0-49 Aged Out No longer eligible based on patient's age to complete this topic Insurance PPO Care Teams Felt Pad Cutter Relationship Specialty Start Date End Date Provider, No Known [facility] PRATIK [id number] PCP - General 10/28/23
--- OUTSIDE RECORDS SUMMARY | 2025-11-13 10:37 | XMS_ITS | Encounter Summary ---
Author Organization [facility] Address [address] [place], [place] [id number] Phone [email or web address] Care Team Providers Care Principal Clerk Name Role Phone Merino Mitchell Primary Care Provider [phone] Reason for Visit * Reason Onset Date Comments Care Coordination 10/19/2025 Encounter Details Date Type Department Care Team (Late st Contact Info) Description 10/19/2025 Telephone [facility] [address] [address] Gopal Skaggs Social History Tobacco Use Types Packs/Day Years Used Date Smoking Tobacco: Never Smokeless Tobacco: Never Alcohol Use Standard Drinks/Week Comments No 0 [...] Sex Assigned at Male 11/20/2023 1:02 PM HEAD UP OPERATOR Legal Sex Male 7:28 AM CDT Gender Identity Male 11/20/2023 1:02 PM HEAD UP OPERATOR Sexual Orientation Not on file documented as of this encounter Miscellaneous Notes * Telephone Encounter - Gopal Skaggs - 10/19/2025 1:09 PM EST Nurse health spa manager note for [facility]ML[facility] TM. 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 Discomfort radiates into forearm, elbow and hand. TM also states rack for parts was lowered ~ 2mths ago, requiring more of a bend at the wrist to pull parts out. TM opened KADY, seen 6x, was given soft support but believes it made discomfort worse and TM was having n/t while wearing support. T M has swelling to the elbow as well. No current shoulder pain and no previous surgeries to right arm. Dx: Right elbow tendonitis M77.8 started for right wrist Date of Injury: 06/22/2025 Date reported: 06/22/2025 Any previous/current IR's: yes Current temporary restrictions: Yes, see [facility] discharge instructions Comorbidities: Depression/PTSD/Psychosocial, Anxiety, Myocarditis Current plan of care: OT 4-6/weeks MRI right elbow ordered 09/26/25, pending WC approval 10/24/25 MRI approved, date pending Clinic Provider: Dr. Lees [phone] NEXT CLINIC VISIT: after being released by specialist Last Specialist Visit: 09/26/25 Richard NEXT SPECIALIST VISIT: pending Notes: This [facility] placed initial call to to discuss [facility] Case management. No answer, left voicemail Call received from states has left multiple emails for WC with no return call to date. Has questions regarding getting paid, sent home 10/09/25. Informed to call WC daily and this NCM sent email to Shaye Rowland and Dyana Galindo checking status of MRI ordered by Richard on 09/26/25. TM states MD is also considering Platelet Rich Plasma, PRP procedure. Planned RTW Date: TBD Net Washer Plan/Goals: TM to call with updates or changes Notes requested from specialist's office Conclusion: -Advised TM to contact lens assistant's comp rep. -E-mail sent to TM with pillowcase cleanercomplex manager info. -TM to call back with updates and changes or as needed. -E-mail sent to worker's comp rep regarding: Status of MRI approval. -TM has no further concerns at this time. Net Washer Signature: Gopal Skaggs UP OPERATOR UP OPERATOR UP OPERATOR documented in this encounter Plan of Treatment Not on file documented as of this encounter Visit Diagnoses Not on filedocumented in this encounter Care Teams Principal Clerk Relationship Specialty Start Date End Date Mitchell Merino [address] [place] [address] PCP - General Family Medicine 10/03/19 documented as of this encounter
--- OUTSIDE RECORDS SUMMARY | 2025-11-13 10:37 | XMS_ITS | Encounter Summary ---
Author Organization [facility] Address [address] [place], [place] [id number] Phone [email or web address] Care Team Providers Care Senior Service Technician Name Role Phone MerinoMitchell Primary Care Provider [phone] Encounter Details Date Type Department Care Team (Late st Contact Info) Description 09/13/2025 Telephone [facility] PT WC[facility] [address] [place] [address] Alethea Maria OT [address] [place] [address] Social History Tobacco Use Types Packs/Day Years [...] Sex Assigned at Male 11/20/2023 1:02 PM DIRECTOR MEDICAL WRITING Legal Sex Male 7:28 AM CDT Gender Identity Male 11/20/2023 1:02 PM DIRECTOR MEDICAL WRITING Sexual Orientation Not on file documented as of this encounter Plan of Treatment Not on file documented as of this encounter Visit Diagnoses Not on filedocumented in this encounter Care Teams Senior Service Technician Relationship Specialty Start Date End Date Mitchell Merino [address] [place] [address] PCP - General Family Medicine 10/03/19 documented as of this encounter
[2025-11-13 10:52] LABS: Hematocrit 43.5 % (42.0-52.0); Hemoglobin 14.6 g/dL (14.1-18.0); Immature Granulocytes % 0.2 %; Mean Corpuscular HGB Conc 33.6 g/dL (31.8-35.4); Mean Corpuscular Hemoglobin 30.0 pg (27.0-31.2); Mean Corpuscular Volume 89.3 fl (80-94); Nucleated Red Blood Cells % 0 %; Platelet Count 210 K/mm3 (142-424); Red Blood Count 4.87 M/mm3 (4.60-6.20); Red Cell Distribution Width-SD 41.0 fL; White Blood Count 5.0 K/mm3 (4.8-10.8)
[2025-11-13 11:22] LABS: Albumin Level 4.7 g/dl (3.5-5.0); Chloride 105 mmol/L (98-107); Potassium 4.3 mmoL/L (3.5-5.1); Sodium 142 mmol/L (136-145)
[2025-11-13 11:24] LABS: Alanine Aminotransferase 21 U/L (12-78); Anion Gap 10.3 mEq/L (5-15); Aspartate Amino Transferase 27 U/L (17-59); Bilirubin,Unconjugated 0.5 mg/dL (0.0-1.1); Blood Urea Nitrogen 15 mg/dl (9-20); Carbon Dioxide 31 mmol/L (22.0-30.0); Creatinine,Serum 0.90 mg/dl (0.66-1.25); Estimated Glomerular Filt Rate 93 ml/min (>60); GFR (African American) 112 ML/MIN (>60); Total Protein,Serum 7.0 g/dl (6.3-8.2)
[2025-11-13 11:25] LABS: Alkaline Phosphatase 47 U/L (38-126); Bilirubin,Direct 0.0 mg/dl (0.0-0.4); Bilirubin,Indirect 0.5 mg/dL (0.0-0.9); Bilirubin,Total 0.5 mg/dl (0.2-1.3); Calcium 10.2 mg/dl (8.4-10.2); Cholesterol 207 mg/dl (140-200); Glucose 91 mg/dl (74-100); HDL Cholesterol 43 mg/dl (40-60); Magnesium 1.9 mg/dl (1.6-2.3); Triglycerides 287 mg/dl (30-150)
[2025-11-13 11:40] LABS: Free T4 (Free Thyroxine) 0.72 ng/dl (0.78-2.19)
[2025-11-13 11:55] LABS: Thyroid Stimulating Hormone 1.07 uIU/mL (0.465-4.68)
== END 2025-11-13 23:59 | disposition home or self-care (01) ==
LOC: LAB 10:22
PROVIDERS: PCP Internal Medicine; Visit Provider Nurse Practitioner
DX: E78.49 Other hyperlipidemia (principal); I10 Essential (primary) hypertension
CPT/HCPCS: 36415; 80048; 80061; 80076; 83735; 84439; 84443; 85025